=== PATIENT | female | born 1995 | race Caucasian/White ===

== ENCOUNTER 2022-07-14 14:11 | Emergency (ER) | payer BC ==
[2022-07-14] MEDS ORDERED: Sodium Chloride 0.9% 10 ML Syringe FLUSH PRN (14:29)
[2022-07-14] MEDS ORDERED: Ondansetron 4 MG/2 ML SDV IVPUSH ONE (14:31)
[2022-07-14] MEDS ORDERED: HYDROmorphone 0.5 MG/0.5 ML Syringe IVPUSH ONE (14:32)
[2022-07-14 15:17] LABS: PTT,PARTIAL THROMBOPLSTIN TIME 27.8 SEC (20.5-30.9)
[2022-07-14 15:32] LABS: ANION GAP 15.6 mmol/L (5-15); CHLORIDE,CL 103 mmol/L (98-107); ESTIMATED GFR 104 mL/min (>=60); SODIUM,NA 138 mmol/L (136-145)
[2022-07-14] MEDS ORDERED: Take Home: Acetaminophen/HYDROcodone 325-5 MG, 5 Tab Pack PO ONE (15:49)
== END 2022-07-14 16:06 | disposition home or self-care (01) ==
LOC: MERGE 14:11 → VM.ED 14:11
DX: K82.8 Other specified diseases of gallbladder (principal); R79.89 Other specified abnormal findings of blood chemistry
CPT/HCPCS: 36415; 80053; 81001; 81025; 82150; 83605; 83690; 83735; 84100; 85025; 85610; 85730; 86140; 99284